=== PATIENT | male | born 1995 | race Caucasian/White ===

== ENCOUNTER 2016-12-23 17:17 | Emergency (ER) | payer BC ==
[2016-12-23 19:37] VITALS: BP 130/93
--- NOTE | 2016-12-23 19:51 | UC ---
Throat Pain/Nasal Girma HPI - HPI Summary HPI Summary: complaint of body aches, sore throat started 2 days ago nauseated, non productive cough, nasal congestion felt feverish and chills roommate in house with similiar illness denies diarrhea took some dayquil this morning and at 1:00 with minimal relief - History of Current Complaint Chief Complaint: UCGeneralIllness Stated Complaint: SORE THROAT Time Seen by Provider: 12/23/16 19:43 Hx Obtained From: Patient - Allergies/Home Medications Allergies/Adverse Reactions: Allergies Allergy/AdvReac Type Severity Reaction Status Date / Time No Known Allergies Allergy Verified 12/23/16 19:37 Home Medications: Home Medications Dextromethorphan-Phenylephrine [Day Time Multi-Symptom Co] 1 cap PO Q4HR PRN 05/03 [History Confirmed 12/23/16] Ibuprofen [Ibuprofen 200 MG] 400 mg PO Q6HR PRN 12/23/16 [History Confirmed 05/03] PMH/Surg Hx/FS Hx/Imm Hx Previously Healthy: Yes - Surgical History Surgical History: None - Family History Known Family History: Negative: Cardiac Disease, Hypertension, Diabetes - Social History Occupation: Student Alcohol Use: Weekly Substance Use Type: None Smoking Status (MU): Never Smoked Tobacco Review of Systems Constitutional: Fever, Chills Skin: Negative Eyes: Negative ENT: Sore Throat, Nasal Discharge Respiratory: Cough Cardiovascular: Negative Gastrointestinal: Other - nausea Genitourinary: Negative Motor: Negative Neurovascular: Negative Musculoskeletal: Negative Neurological: Negative Psychological: Negative All Other Systems Reviewed And Are Negative: Yes Physical Exam Triage Information Reviewed: Yes Appearance: No Pain Distress, Well-Nourished, Ill-Appearing Vital Signs: Initial Vital Signs Temp 99.3 F 12/23/16 19:31 Pulse 94 12/23/16 19:31 Resp 16 12/23/16 19:31 BP 130/93 12/23/16 19:31 Pulse Ox 99 12/23/16 19:31 Vital Signs Reviewed: Yes Eyes: Positive: Conjunctiva Clear ENT: Positive: Pharyngeal erythema, Nasal congestion, Nasal drainage, TMs normal. Negative: Tonsillar swelling, Tonsillar exudate Neck: Positive: No Lymphadenopathy Respiratory: Positive: Lungs clear, Normal breath sounds, No respiratory distress Cardiovascular: Positive: RRR, No Murmur, Pulses Normal Abdomen Description: Positive: Nontender, Soft Bowel Sounds: Positive: Present Musculoskeletal: Positive: No Edema Neurological: Positive: Alert Psychological Exam: Normal Skin Exam: Normal Throat Pain/Nasal Course/Dx - Differential Dx/Diagnosis Differential Diagnosis/HQI/PQRI: Influenza, Pharyngitis, URI Provider Diagnoses: influenza Discharge - Discharge Plan Condition: Stable Disposition: HOME Patient Education Materials: Influenza (ED) Additional Instructions: TREATING THE FLU (Influenza) What is the Flu? Influenza, or "flu," is an infection of the breathing tubes and lungs. Flu happens mostly in late fall, winter, or early spring. It is very easily spread from one person to another by coughing and sneezing. The flu affects people of all ages. Symptoms Might Include: Stuffed up or runny nose Cough which may be worse at night that lasts for one to two weeks Fever especially the first 2 days and which may go up and down Headache and muscle aches Mild sore throat Poor appetite Tiredness Influenza (Flu) Vaccine Much of the illness and caused by influenza can be prevented by annual flu vaccination. It is especially recommended for people who are at high risk. Those at higher risk include all people aged 65 years or older and people of any age with chronic diseases of the heart, lung or kidneys, diabetes, immunosuppression, or severe forms of anemia. Other high-risk groups are, women who will be more than 3 months during the flu season, and children. Treatment Recommendations: Take acetaminophen (Tylenol, etc.) for aches and fever. Do not ever give aspirin to children. Drink lots of fluids. Use a cool-mist humidifier night and day if it helps you. Keep room at a comfortable temperature for you. Do not overheat the room. Do not overdress. Do not smoke. Get as much rest as you can. Call Your Doctor or Return Here IF: You have a fever that lasts for more than three days. You have trouble breathing. You begin to cough up green, yellow, or red mucous. Your cough gets worse or you have chest pain with coughing or deep breathing. You start to have any other symptoms that worry you.
== END 2016-12-23 20:34 | disposition home or self-care (01) ==
LOC: UCCORT 17:17
DX: J11.1 Influenza due to unidentified influenza virus with other respiratory manifestations (principal)
CPT/HCPCS: 87502; 99201; G0463

== ENCOUNTER 2017-07-16 18:17 | Emergency (ER) | payer BC ==
[2017-07-16 18:38] VITALS: BP 117/79
--- NOTE | 2017-07-16 20:12 | UC ---
Hand/Wrist HPI - HPI Summary HPI Summary: YESTERDAY JAMMED RIGHT INDEX FINGER WHILE PLAYING BASKETBALL. SWELLING AND PAIN WITH FLEXION OF FINGER. NO PREVIOUS INJURY TO FINGER. - History Of Current Complaint Chief Complaint: UCUpperExtremity Stated Complaint: RIGHT INDEX FINGER INJURY Time Seen by Provider: 07/16/17 18:47 Hx Obtained From: Patient Onset/Duration: Sudden Onset, Lasting Days, Still Present Severity Initially: Moderate Severity Currently: Moderate Character Of Pain: Dull, Aching Aggravating Factor(s): Movement, Flexion, Extension Alleviating: Rest Associated Signs And Symptoms: Positive: Swelling. Negative: Bruising, Fever, Numbness/Tingling Related History: Dominant Hand Right - Allergies/Home Medications Allergies/Adverse Reactions: Allergies Allergy/AdvReac Type Severity Reaction Status Date / Time No Known Allergies Allergy Verified 07/16/17 18:38 Home Medications: Home Medications NK [No Home Medications Reported] 07/16/17 [History Confirmed 07/16/17] PMH/Surg Hx/FS Hx/Imm Hx Previously Healthy: Yes - Surgical History Surgical History: None - Family History Known Family History: Negative: Cardiac Disease, Hypertension, Diabetes, Other - NO JOINT LAXITY OR CONNECTIVE TISSUE DISORDERS, GRANDMOTHER HAS ARTHRI - Social History Occupation: Student Lives: With Family Alcohol Use: Weekly Alcohol Amount: 3 times a week Substance Use Type: None Smoking Status (MU): Never Smoked Tobacco Review of Systems Constitutional: Negative Skin: Negative Eyes: Negative ENT: Negative Respiratory: Negative Cardiovascular: Negative Gastrointestinal: Negative Genitourinary: Negative Motor: Negative Neurovascular: Negative Musculoskeletal: Arthralgia, Myalgia Neurological: Negative Psychological: Negative, Anxious All Other Systems Reviewed And Are Negative: Yes Physical Exam Triage Information Reviewed: Yes Appearance: Well-Appearing, Well-Nourished, Ill-Appearing - MILD Vital Signs: Initial Vital Signs Temp 98.8 F 07/16/17 18:34 Pulse 65 07/16/17 18:34 Resp 14 07/16/17 18:34 BP 117/79 07/16/17 18:34 Pulse Ox 100 07/16/17 18:34 Vital Signs Reviewed: Yes Eye Exam: Normal ENT Exam: Normal ENT: Positive: Normal ENT inspection, Hearing grossly normal, TMs normal Dental Exam: Normal Neck exam: Normal Neck: Positive: Supple, Nontender Respiratory Exam: Normal Respiratory: Positive: Chest non-tender, Lungs clear, Normal breath sounds, No respiratory distress, No accessory muscle use Cardiovascular Exam: Normal Cardiovascular: Positive: RRR, No Murmur, Pulses Normal Musculoskeletal: Positive: Strength Intact, ROM Intact, Edema @ - MILD RIGHT SECOND FINGER Neurological Exam: Normal Psychological Exam: Normal Skin Exam: Normal Hand/Wrist Course/Dx - Differential Dx/Diagnosis Differential Diagnosis/HQI/PQRI: Sprain, Strain Provider Diagnoses: RIGHT SECOND FINGER SPRAIN Discharge - Discharge Plan Condition: Stable Disposition: HOME Patient Education Materials: Finger Sprain (ED) Referrals: [facility] [Outside] Marito Sutherland MD [Medical Doctor] - If Needed Non Staff,Doctor [Primary Care Provider] -
--- NOTE | 2017-07-16 20:16 | RAD ---
Indication: Right index finger injury. 3 views of the right index finger demonstrates no fracture. No other bone or joint abnormality is noted. IMPRESSION: NO FRACTURE OF THE RIGHT INDEX FINGER IS NOTED.
== END 2017-07-16 20:04 | disposition home or self-care (01) ==
LOC: UCCORT 18:17
DX: S63.610A Unspecified sprain of right index finger, initial encounter (principal); W21.89XA Striking against or struck by other sports equipment, initial encounter; Y93.67 Activity, basketball; Y92.9 Unspecified place or not applicable; Y99.9 Unspecified external cause status
CPT/HCPCS: 73140; 99211; G0463